=== PATIENT | male | born 1940 | race Caucasian/White ===

== ENCOUNTER 2016-10-11 10:01 | Emergency (ER) | payer MEDICARE ==
[2016-10-11 10:18] VITALS: BP 136/79
[2016-10-11] MEDS ORDERED: CEPHALEXIN 250 MG CAPSULE PO STA (12:14)
[2016-10-11] MEDS ORDERED: CEPHALEXIN 250 MG CAPSULE PO ONE (12:19)
--- NOTE | 2016-10-11 12:24 | ED Physician Documentation ---
History of Present Illness - Stated complaint Stated Complaint: RED BUMP - Chief complaint Chief Complaint: Ext Problem - History obtained from History obtained from: Patient - Additonal information Additional information: Patient is a 75-year-old male who presents with small erythematous area at the top of his left total hip incision. The hip was read placed at the end of August. He has not had any pain in the hip and is ambulatory without any difficulty. He does notice the redness the other day. He has no systemic complaints such as fever chills nausea vomiting. He does have a history of hypertension and diabetes which have been well controlled. Review of systems: For pertinent positive and negatives in the review of systems please see the history of present illness, otherwise all other systems have been reviewed and are negative. Dragon disclaimer: Parts of this medical record were created using voice recognition technology. Because of the inherent limitations of this system, occasional same sounding word substitutions do occur and persist despite proofreading. Please read the document for context. Review of Systems Constitutional: denies: Fever, Chills PD PAST MEDICAL HISTORY - Past Medical History Past Medical History: Yes Cardiovascular: None Respiratory: None Neuro: None Endocrine/Autoimmune: None GI: None : None HEENT: None Psych: None Musculoskeletal: Osteoarthritis, Gout Derm: Other - Past Surgical History Past Surgical History: Yes General: Cholecystectomy Ortho: Hip replacement, Knee replacement - Present Medications Home Medications: Ambulatory Orders Medication Instructions Recorded Confirmed Atenolol 25 mg PO DAILY 10/11/16 10/11/16 Atorvastatin [Lipitor] 10 mg ORAL DAILY 10/11/16 10/11/16 Cephalexin [Keflex] 500 mg PO QID #28 capsule 10/11/16 Lisinopril 5 mg PO DAILY 10/11/16 10/11/16 - Allergies Allergies/Adverse Reactions: Allergies Allergy/AdvReac Type Severity Reaction Status Date / Time No Known Drug Allergies Allergy Verified 10/11/16 10:18 - Social History Does the pt smoke?: No Smoking Status: Former smoker Does the pt drink ETOH?: Yes ETOH Use: Liquor - POLST Patient has POLST: No PD ED PE NORMAL - Vitals Vital signs reviewed: Yes - General General: Alert and oriented X 3, No acute distress - HEENT HEENT: Atraumatic - Neck Neck: Supple, no meningeal sign - Cardiac Cardiac: RRR, No murmur - Respiratory Respiratory: No respiratory distress - Abdomen Abdomen: Normal bowel sounds, Non tender - Derm Derm: Normal color, Warm and dry, No rash, Other (Patient's incision looks relatively fresh. At the caudal end of the incision there is a little erythematous area consistent with a very superficial cellulitis without abscess. There does not appear to be any deep infection.) Results - Vitals Vitals: Vital Signs - 24 hr 10/11/16 10:14 Temperature 36.5 C Heart Rate 63 Respiratory 18 Rate Blood Pressure 136/79 H O2 Saturation 97 Oxygen O2 Source Room air PD MEDICAL DECISION MAKING - ED course Complexity details: reviewed old records, reviewed results ED course: Well-appearing man with what appears to be a simple mild cellulitis of the incision of his left hip. He was given Keflex and will continue Keflex outpatient. I did discuss with him that there is a small chance that this could represent a more serious infection and that time will tell. I did recommend that he discuss the case with his orthopedic surgeon and watch the wound the incision very closely. Disposition: To home Clinical impression: 1. Incisional infection left thigh-mild Departure - Departure Disposition: 01 Home, Self Care Clinical Impression: Cellulitis Qualifiers: Site of cellulitis: other site Qualified Code(s): L03.818 - Cellulitis of other sites Condition: Good Instructions: ED Infec Skin Cellulitis Follow-Up: LORA CABRERA MD [Primary Care Provider] - Prescriptions: Cephalexin [Keflex] 500 mg PO QID #28 capsule
== END 2016-10-11 12:29 | disposition home or self-care (01) ==
LOC: ED 10:01
DX: T81.4XXA Infection following a procedure, initial encounter (principal); L03.116 Cellulitis of left lower limb; Z87.891 Personal history of nicotine dependence
CPT/HCPCS: 99283; A9270